=== PATIENT | male | born 1945 | race Hispanic/Latino ===

== ENCOUNTER 2018-05-08 22:56 | Emergency (ER) | payer MEDICARE, BC, OTHER ==
[2018-05-08 22:57] VITALS: BMI 34.0
[2018-05-08] MEDS ORDERED: TDAP Vaccine 0.5 mL Syr IM ONE (23:16)
--- NOTE | 2018-05-08 23:26 | ED PDOC ---
Arrival/HPI - General Historian: Patient - History of Present Illness Time/Duration: Prior to Arrival Symptom Onset: Sudden Symptom Course: Unchanged <Dia Uribe - Last Filed: 05/09/18 01:05> <Kody Sanchez - Last Filed: 05/09/18 01:31> - General Chief Complaint: Trauma Time Seen by Provider: 05/08/18 23:15 - History of Present Illness Narrative History of Present Illness (Text): 05/08/18 23:26 72yr old male presents today s/p mechanical fall with left 3rd finger pain and deformity and head injury with abrasion. pt states he was walking with his rollator and the wheel went into a hole causing him to fall forward toward the left side injuring his head and left 3rd finger. pt denies LOC. denies headaches dizziness or weakness. pt denies neck or back pain. pt denies numbness weakness or tingling in the extremities. pt denies abdominal pain. no n /v/d. unsure of last tetanus shot. no other complaints. (Dia Uribe) Past Medical History - Provider Review Nursing Documentation Reviewed: Yes - Travel History Have you recently traveled outside [place] w/in the past 3 mons?: No - Tetanus Immunization Tetanus Immunization: Unknown - Cardiac Hx Pacemaker: No - Neurological Hx Paralysis: No - Hematological/Oncological Hx Blood Transfusions: No Hx Blood Transfusion Reaction: No - Musculoskeletal/Rheumatological Hx Musculoskeletal Disorders: Yes Hx Back Pain: Yes Hx Falls: Yes Hx Unsteady Gait: Yes Other/Comment: uses cane and rollator to ambulate. - Psychiatric Hx Emotional Abuse: No Hx Physical Abuse: No Hx Substance Use: No - Surgical History Hx Appendectomy: Yes Hx Cholecystectomy: Yes Other/Comment: correction of deviated septum = 2010 - Anesthesia Hx Anesthesia: Yes Hx Anesthesia Reactions: No Hx Malignant Hyperthermia: No - Suicidal Assessment Feels Threatened In Home Enviroment: No <Dia Uribe - Last Filed: 05/09/18 01:05> Family/Social History - Physician Review Nursing Documentation Reviewed: Yes Family/Social History: Unknown Family HX Smoking Status: Former Smoker Hx Alcohol Use: Yes (1 OUNCE/DAY) Frequency of alcohol use: Socially Hx Substance Use: No <Dia Uribe - Last Filed: 05/09/18 01:05> Allergies/Home Meds <Dia Uribe - Last Filed: 05/09/18 01:05> <Kody Sanchez - Last Filed: 05/09/18 01:31> Allergies/Adverse Reactions: Allergies ampicillin Allergy (Severe, Verified 05/08/18 23:59) URTICARIA Home Medications: Home Meds Medication Instructions Recorded Confirmed Aspirin [Aspirin EC] 81 mg PO DAILY 08/23/16 05/08/18 Cholecalciferol (Vitamin D3) 2,000 unit PO DAILY 08/23/16 05/08/18 [Vitamin D3] Cyanocobalamin [Vitamin B12 1000 1,000 mcg PO DAILY 08/23/16 05/08/18 mcg Tab] Cyclobenzaprine [Cyclobenzaprine 10 mg PO DAILY 08/23/16 05/08/18 HCl] Gluc Kincaid/Chondro Kincaid A/Vit C/Mn 1 cap PO DAILY 08/23/16 05/08/18 [Glucosamine Chondroitin Tab] Meloxicam [Mobic] 15 mg PO DAILY 08/23/16 05/08/18 Metoprolol Tartrate 12.5 mg PO BID 08/23/16 05/08/18 Seaview-3 Fatty Acids/Fish Oil [Fish 1,000 mg PO DAILY 08/23/16 05/08/18 Oil 1,000 mg Capsule] Omeprazole 20 mg PO DAILY 08/23/16 05/08/18 Tamsulosin [Flomax] 0.4 mg PO DAILY 08/23/16 05/08/18 Review of Systems - Review of Systems Constitutional: absent: Fatigue, Fevers Eyes: absent: Vision Changes, Photophobia, Eye Pain Respiratory: absent: SOB, Cough Cardiovascular: absent: Chest Pain, Palpitations Gastrointestinal: absent: Abdominal Pain, Constipation, Diarrhea, Nausea, Vomiting Genitourinary Male: absent: Dysuria, Frequency, Hematuria, Urinary Output Changes Musculoskeletal: Arthralgias. absent: Back Pain, Neck Pain Neurological: absent: Headache, Dizziness Psychiatric: absent: Anxiety <Dia Uribe - Last Filed: 05/09/18 01:05> Physical Exam Vital Signs Reviewed: Yes Temperature: Afebrile Blood Pressure: Normal Pulse: Regular Respiratory Rate: Normal Appearance: Positive for: Well-Appearing, Non-Toxic, Comfortable Pain Distress: None Mental Status: Positive for: Alert and Oriented X 3 - Systems Exam Head: Present: Abrasion (+ abrasion noted to left eyebrow. no step offs or crepitus. ), Laceration (+ 1cm superficial laceration with surrounding abrasion. no active bleeding. ) Pupils: Present: PERRL Extroacular Muscles: Present: EOMI Mouth: Present: Moist Mucous Membranes Nose (External): Present: Atraumatic Neck: Present: Normal Range of Motion. No: MIDLINE TENDERNESS, Paraspinal Tenderness Respiratory/Chest: Present: Clear to Auscultation, Good Air Exchange, Other ( small abrasion noted to lateral lower ribs without tenderness, step offs or crepitus. ). No: Respiratory Distress, Accessory Muscle Use, Tender to Palpation Cardiovascular: Present: Regular Rate and Rhythm, Normal S1, S2. No: Murmurs Abdomen: No: Tenderness, Distention, Rebound, Guarding Back: Present: Normal Inspection. No: Midline Tenderness, Paraspinal Tenderness Upper Extremity: Present: NORMAL PULSES, Tenderness (left hand; + deformity noted to the 3rd finger; + puncture noted to volar aspect at middle phalanx. sensation in tact. cap refill <2. no ROM of finger. no wrist tenderness. no snuff box tenderness. ), Swelling, Neurovascularly Intact, Deformity. No: Normal ROM Neurological: Present: GCS=15, Speech Normal Skin: Present: Warm, Dry Psychiatric: Present: Alert, Oriented x 3 <Dia Uribe - Last Filed: 05/09/18 01:05> Vital Signs Temp Pulse Resp BP Pulse Ox 05/08/18 23:26 97.9 F 92 H 17 141/74 95 Medical Decision Making <Dia Uribe - Last Filed: 05/09/18 01:05> <Kody Sanchez - Last Filed: 05/09/18 01:31> ED Course and Treatment: 05/08/18 23:31 72yr old male with head injury and finger deformity s/p mechanical fall. alert and oriented; no distress. pt denies abdominal pain, denies back or neck pain; abdomen is non tender; no back tenderness. pt states while he is in the ER having xrays; he states he injured his right hand 2 months ago and has been having some pain so is requesting xrays. xray left hand; + dislocation at 3rd PIP. ? fracture xray right hand; no fracture pt with open fracture dislocation of finger. ct head; FINDINGS: Brain: Unremarkable. Ventricles: Unremarkable. Bones/joints: Unremarkable. No acute fracture. Soft tissues: Left lateral periorbital subcutaneous traumatic injury with subcutaneous emphysema. No retained radiopaque foreign body. Sinuses: Unremarkable as visualized. Mastoid air cells: Unremarkable as visualized. IMPRESSION: Left lateral periorbital subcutaneous traumatic injury with subcutaneous emphysema. No retained radiopaque foreign body. No acute intracranial pathology or traumatic injury. tetanus updated laceration to left eyebrow; approx 1cm; wound irrigated well with high pressure irrigation; laceration repair with dermabond. pt with small wound noted to volar aspect of finger along proximal phalanx just adjacent to the PIP joint concerning for possible open fracture. wound irrigated well with copious amounts of NS using high pressure irrigation. procedure note; dislocation reduction left 3rd finger; digital block performed using 2 1/2cc of 2% lidocaine injected locally; adequate anesthesia. finger manually reduced; pt tolerated procedure well. no complications. repeat xray left 3rd finger s/p reduction; reduced; + chip fracture noted Case discussed with the hand specialist dr. Rona Vieira in depth; he advised clindamycin IV. advised f/u in office on monday. advised fingersplint with PIP at 25 degree flexion. clindamycin started IV for concern of open fracture. pt placed in finger splint. pt was seen and evaluated by dr. sanchez. all results were discussed with patient in depth; he was advised to f/u with hand specialist on monday and call tomorrow to schedule the appointment. pt was advised to take abx as prescribed. pt was advised to use finger splint. pt was advised to return immediately if symptoms worsen,persist or if new symptoms develop. head injury instructions discussed with patient in depth. Patient verbalizes understanding of discharge instructions and need for immediate followup. impression; open fracture, finger, head injury, laceration eyebrow Clindamycin 1 tablet 3 times daily x 7 days Use finger splint follow up with the hand specialist on monday; call tomorrow to schedule appointment. return immediately if signs of infection develop; high fevers, increasing pain, redness, swelling, or purulent discharge develop. follow up with the primary care physician within the next 2 days. return immediately if any other concerning symptoms develop. (Dia Uribe) - RAD Interpretation Radiology Orders: 05/08/18 23:15 HEAD W/O CONTRAST [CT] Stat HAND 3 VIEWS BI [RAD] Stat 05/09/18 00:21 HAND LEFT 3RD DIGIT (FINGER) [RAD] Stat - Medication Orders Current Medication Orders: Clindamycin Phosphate (Cleocin) 600 mg in 50 mls @ 50 mls/hr IVPB STAT STA PRN Reason: Protocol Stop: 05/09/18 01:44 Last Admin: 05/09/18 01:10 Dose: 50 mls/hr eMAR Start Stop Document 05/09/18 01:10 IT (Rec: 05/09/18 01:11 IT [id number]) Intravenous Solution Start Date 05/09/18 Start Time 01:11 Discontinued Medications Tetanus/Reduced Diphtheria/Acell Pertussis (Boostrix Vaccine Inj) 0.5 ml IM .ONCE ONE Stop: 05/08/18 23:17 Last Admin: 05/08/18 23:29 Dose: 0.5 ml MAR Immunization Data Document 05/08/18 23:29 IT (Rec: 05/08/18 23:29 IT [id number]) Immunization Data Vaccine Information Sheet Given Yes Procedure: Wound Repair - Procedure Procedure: Wound Repair: laceration, eyebrow - Performed by Performed by: Mid-level Provider - Indications Indication(s):: Laceration - Location Location:: Left, Eyebrow Shape:: Linear Dimensions Length cm: 1cm Depth:: Epidermis - Debris Debris:: None - Irrigated Irrigated with ml of normal saline: copious amounts of NS using high pressure irrigation - Complexity Complexity:: Simple (one layer) - Wound repair method [place]el:: Tissue glue - Complications Complications: none - Patient tolerated procedure Patient Tolerated Procedure:: Well <Dia Uribe - Last Filed: 05/09/18 01:05> - PA / [employer] / Resident Statement AMELIA has reviewed & agrees with the documentation as recorded. AMELIA has examined the patient and agrees with the treatment plan. <Kody Sanchez - Last Filed: 05/09/18 01:31> Disposition/Present on Arrival - Present on Arrival Any Indicators Present on Arrival: No History of DVT/PE: No History of Uncontrolled Diabetes: No Urinary Catheter: No History of Decub. Ulcer: No History Surgical Site Infection Following: None - Disposition Have Diagnosis and Disposition been Completed?: Yes Disposition Time: 01:06 Patient Plan: Discharge <Dia Uribe - Last Filed: 05/09/18 01:05> <Kody Sanchez - Last Filed: 05/09/18 01:31> - Disposition Diagnosis: Open fracture dislocation of finger, Head injury, Laceration of eyebrow Disposition: HOME/ ROUTINE Condition: GOOD Discharge Instructions (ExitCare): Laceration Repair With Glue (DC), Minor Head Injury (DC), Finger Fracture (DC), Finger Dislocation Additional Instructions: Clindamycin 1 tablet 3 times daily x 7 days Use finger splint follow up with the hand specialist on monday; call tomorrow to schedule appointment. return immediately if signs of infection develop; high fevers, increasing pain, redness, swelling, or purulent discharge develop. follow up with the primary care physician within the next 2 days. return immediately if any other concerning symptoms develop. Prescriptions: Clindamycin [Cleocin] 150 mg PO TID #21 cap Referrals: John Mancia MD [Primary Care Provider] - Follow up with primary Rona Vieira MD [Staff Provider] - Follow up with primary Forms: haku (Eth[place]ian)
[2018-05-09] MEDS ORDERED: Lidocaine PF 2% (5 ml) Inj (For Cardiac Arrhy) ONE (00:09)
[2018-05-09] MEDS ORDERED: Ciprofloxacin 400mg/200ml D5W 400 MG/200 ML BAG IVPB STA (00:34)
[2018-05-09] MEDS ORDERED: Clindamycin 600mg/50ml D5W 600 MG/50 ML VIAL IVPB STA (00:45)
[2018-05-09 01:45] VITALS: BP 137/78; PULSE 83; RESP 18; O2SAT 97
[2018-05-09 01:55] VITALS: TEMP 98.2
--- NOTE | 2018-05-09 09:05 | RAD ---
PROCEDURE: Bilateral hand radiographs. HISTORY: fall today, deformity to left 3rd finger COMPARISON: None. FINDINGS: BONES: Right Hand: Degenerative changes in the DIP joint Left Hand: Degenerative changes in the DIP joint JOINTS: Right Hand: Normal Left Hand: There is dislocation of the 3rd PIP joint SOFT TISSUES: Right Hand: Normal. Left Hand: Normal. OTHER FINDINGS: None. IMPRESSION: Dislocation of the left 3rd PIP joint
--- NOTE | 2018-05-09 09:07 | RAD ---
Date of service: 05/09/2018 PROCEDURE: Left hand 3rd digit HISTORY: s/p reduction COMPARISON: Earlier film same day TECHNIQUE: Three views FINDINGS: IMPRESSION: Successful reduction of dislocation of 3rd PIP joint with no evidence of fracture
--- NOTE | 2018-05-09 09:22 | CT ---
Date of service: 05/09/2018 PROCEDURE: CT HEAD WITHOUT CONTRAST. HISTORY: fall COMPARISON: None available. TECHNIQUE: Axial computed tomography images were obtained through the head/brain without intravenous contrast. Radiation dose: Total exam DLP = 885 mGy-cm. This CT exam was performed using one or more of the following dose reduction techniques: Automated exposure control, adjustment of the mA and/or kV according to patient size, and/or use of iterative reconstruction technique. FINDINGS: HEMORRHAGE: No intracranial hemorrhage. BRAIN: No mass effect or edema. No atrophy or chronic microvascular ischemic changes. VENTRICLES: Unremarkable. No hydrocephalus. CALVARIUM: Unremarkable. PARANASAL SINUSES: Unremarkable as visualized. No significant inflammatory changes. MASTOID AIR CELLS: Unremarkable as visualized. No inflammatory changes. OTHER FINDINGS: None. IMPRESSION: No acute intracranial findings. Left lateral periorbital subcutaneous emphysema consistent with soft tissue injury. No fracture
== END 2018-05-09 01:55 | disposition home or self-care (01) ==
LOC: ED 22:56
DX: S01.112A Laceration without foreign body of left eyelid and periocular area, initial encounter (principal); S62.613B Displaced fracture of proximal phalanx of left middle finger, initial encounter for open fracture; W01.0XXA Fall on same level from slipping, tripping and stumbling without subsequent striking against object, initial encounter; Y92.009 Unspecified place in unspecified non-institutional (private) residence as the place of occurrence of the external cause; Z23 Encounter for immunization